=== PATIENT | male | born 1975 | race Caucasian/White ===

== ENCOUNTER 2018-06-29 10:52 | Inpatient (IN) | payer MEDICAID, OTHER ==
--- NOTE | 2018-06-29 11:36 | ED ---
Psych HPI - General Chief Complaint: Psychiatric Symptoms Stated Complaint: mental health Time Seen by Provider: 06/29/18 10:57 Source: patient, RN notes reviewed Mode of arrival: ambulatory - History of Present Illness Initial Comments: 43-year-old male presents emergency Department chief complaint depression, suicidal. He's been having worsening depression worsening suicidal ideation. He states that he's been trying to located gun states that he located 1 with the hospitalist imaging worried to go psyching headache is a felt that he was any kill himself. Patient states he does have a history of alcohol and drug use. Patient states he does have a long history of depression and which she has been admitted the hospital before. Patient states he is currently homeless. He has no physical complaints. - Related Data Home Medications Medication Instructions Recorded Confirmed No Known Home Medications 06/29/18 06/29/18 Allergies Allergy/AdvReac Type Severity Reaction Status Date / Time codeine Allergy Swelling Verified 06/29/18 13:08 morphine Allergy Swelling Verified 06/29/18 13:08 Review of Systems ROS Statement: Those systems with pertinent positive or pertinent negative responses have been documented in the HPI. ROS Other: All systems not noted in ROS Statement are negative. Past Medical History Past Medical History: No Reported History, Syncope History of Any Multi-Drug Resistant Organisms: None Reported Additional Past Surgical History / Comment(s): Amputated Left index. Past Psychological History: Anxiety Smoking Status: Current every day smoker Past Alcohol Use History: None Reported Past Drug Use History: Marijuana General Exam Limitations: no limitations General appearance: alert, in no apparent distress Head exam: Present: atraumatic, normocephalic, normal inspection Eye exam: Present: normal appearance, PERRL, EOMI. Absent: scleral icterus, conjunctival injection, periorbital swelling ENT exam: Present: normal exam, normal oropharynx, mucous membranes moist, TM's normal bilaterally Neck exam: Present: normal inspection, full ROM. Absent: tenderness, meningismus, lymphadenopathy Respiratory exam: Present: normal lung sounds bilaterally. Absent: respiratory distress, wheezes, rales, rhonchi, stridor Cardiovascular Exam: Present: regular rate, normal rhythm, normal heart sounds. Absent: systolic murmur, diastolic murmur, rubs, gallop, clicks Neurological exam: Present: alert, oriented X3 Psychiatric exam: Present: depressed Skin exam: Present: warm, dry, intact, normal color. Absent: rash Course Vital Signs 06/29/18 10:54 Temperature 97.8 F Pulse Rate 52 L Respiratory 20 Rate Blood Pressure 116/69 O2 Sat by Pulse 99 Oximetry Medical Decision Making - Lab Data Lab Results 06/29/18 Range/Units 13:00 Urine Opiates Screen Not Detected (NotDetected) Ur Oxycodone Screen Not Detected (NotDetected) Urine Methadone Screen Not Detected (NotDetected) Ur Propoxyphene Screen Not Detected (NotDetected) Ur Barbiturates Screen Not Detected (NotDetected) U Tricyclic Antidepress Not Detected (NotDetected) Ur Phencyclidine Scrn Not Detected (NotDetected) Ur Amphetamines Screen Detected H (NotDetected) U Methamphetamines Scrn Detected H (NotDetected) U Benzodiazepines Scrn Not Detected (NotDetected) Urine Cocaine Screen Not Detected (NotDetected) U Marijuana (THC) Screen Detected H (NotDetected) Disposition Clinical Impression: Depression, Suicidal ideation Disposition: TRANSFER TO PSYCH HOSP/UNIT Condition: Stable
[2018-06-29 13:31] LABS: Amphetamine Screen,Urine Detected (NotDetected); Barbiturate Screen,Urine Not Detected (NotDetected); Benzodiazepines Screen,Urine Not Detected (NotDetected); Cocaine Screen,Urine Not Detected (NotDetected); Methadone Screen, Urine Not Detected (NotDetected); Opiate Screen,Urine Not Detected (NotDetected); Oxycodone Screen, Urine Not Detected (NotDetected); Phencyclidine Screen,Urine Not Detected (NotDetected); Tricyclic Antidepressant,Urine Not Detected (NotDetected); Urn Cannabinoid Scrn Detected (NotDetected)
[2018-06-29] MEDS ORDERED: LORazepam 1 MG TAB PO PRN (17:06)
[2018-06-29] MEDS ORDERED: ZIPRASIDONE 20 MG VIAL IM PRN (17:06)
[2018-06-29] MEDS ORDERED: MAGNESIUM HYDROXIDE 2,400 MG/10 ML CUP PO PRN (17:06)
[2018-06-29] MEDS ORDERED: MAG HYDROX/AL HYDROX/SIMETH 30 ML CUP PO PRN (17:06)
[2018-06-29] MEDS ORDERED: LORazepam 2 MG/ML INJ IM PRN (17:10)
[2018-06-29] MEDS: NICOTINE 14MG/24HR PATCH TRANSDERM SCH (17:50)
--- NOTE | 2018-06-30 | P.MDCNMH ---
History of Present Illness H&P Date: 06/29/18 Chief Complaint: Severe depression and suicidal ideation Patient is a 43-year-old male with a known history of anxiety, nicotine addiction was admitted to the hospital for depression and suicidal ideation. Patient states he does have a history of alcohol and drug use. Patient states he does have a long history of depression and which she has been admitted the hospital before. Patient states he is currently homeless. He has no physical complaints. Denied any complaints of chest pain or shortness of breath. No fever no chills. Patient continues to smoke daily basis. 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 UDS is positive for methamphetamines and marijuana. Review of Systems Constitutional: Patient denies any fever or chills . No generalized weakness or weight loss. Abdomen: Patient denied nausea vomiting and diarrhea and abdominal pain. Cardiovascular: Patient denies any chest pain or short of breath no palpitations. Respiratory: patient denied any cough is from production. No shortness of breath Neurologic: Patient denied any numbness or tingling headache. Musculoskeletal: Patient denies any complaints of joint swelling or deformity. Skin: Negative Psychiatric: Depression Endocrine: No heat or cold intolerance. No recent weight gain. Genitourinary: No dysuria or hematuria. All other 14 point ROS negative except the above Past Medical History Past Medical History: No Reported History, Syncope History of Any Multi-Drug Resistant Organisms: None Reported Additional Past Surgical History / Comment(s): Amputated Left index. Past Psychological History: Anxiety Smoking Status: Current every day smoker Past Alcohol Use History: None Reported Past Drug Use History: Marijuana Medications and Allergies Home Medications Medication Instructions Recorded Confirmed Type No Known Home Medications 06/29/18 06/29/18 History Allergies Allergy/AdvReac Type Severity Reaction Status Date / Time codeine Allergy Swelling Verified 06/29/18 13:08 morphine Allergy Swelling Verified 06/29/18 13:08 Physical Exam Vitals: Vital Signs Temp Pulse Pulse Resp BP BP Pulse Ox 06/29/18 14:15 97.3 F L 69 18 109/73 06/29/18 14:07 61 16 101/57 96 06/29/18 10:54 97.8 F 52 L 20 116/69 99 Intake and Output 06/29/18 06/29/18 06/29/18 06:59 14:59 22:59 Other: Weight 72.575 kg PHYSICAL EXAMINATION: Patient is lying in the bed comfortably, no acute distress, awake alert and oriented.. HEENT: Normocephalic. Neck is supple. Pupils reactive. Nostrils clear. Oral cavity is moist. Ears reveal no drainage. Neck reveals no JVD, carotid bruits, or thyromegaly. CHEST EXAMINATION: Trachea is central. Symmetrical expansion. Lung rodriguez clear to auscultation and percussion. CARDIAC: Normal S1, S2 with no gallops. No murmurs ABDOMEN: Soft. Bowel sounds normal. No organomegaly. No abdominal bruits. Extremities: reveal no edema. No clubbing or cyanosis Neurologically awake, alert, oriented x3 with well-coordinated movements. No focal deficits noted Skin: No rash or skin lesions. Psychiatric: Coperative. Denied any suicidal ideation at this time. Musculoskeletal: No joint swelling or deformity. Normal range of motion. Cranial Nerve Examination - Cranial Nerves Cranial Nerve I- Olfactory: Intact Cranial Nerve II- Optic: Intact Cranial Nerve III- Oculomotor: Intact Cranial Nerve IV- Trochlear: Intact Cranial Nerve V- Trigeminal: Intact Cranial Nerve - Abducens: Intact Cranial Nerve VII- Facial: Intact Cranial Nerve VIII- Auditory: Intact Cranial Nerve IX- Glossopharyngeal: Intact Cranial Nerve X- Vagus: Intact Cranial Nerve XI- Accessory: Intact Cranial Nerve XII- Hypoglossal: Intact Results Labs: Abnormal Lab Results - Last 24 Hours (Table) 06/29/18 Range/Units 13:00 Ur Amphetamines Screen Detected H (NotDetected) U Methamphetamines Scrn Detected H (NotDetected) U Marijuana (THC) Screen Detected H (NotDetected) Assessment and Plan Assessment: Depression with suicidal ideation. History of depression. Currently not on any medications. Nicotine addiction Marijuana use Plan: Patient will be continued on current psychiatric medications and continue to follow closely. Smoking cessation and marijuana use has been counseled extensively. Further recommendations based on the clinical course. We will follow up CBC CMP and TSH level. Thank you for your consult.
[2018-06-30] MEDS: NICOTINE 14MG/24HR PATCH TRANSDERM SCH (07:58)
[2018-06-30 09:45] LABS: Basophils # (A) 0.1 k/uL (0-0.2); Basophils % (A) 0 %; Eosinophils # (A) 0.2 k/uL (0-0.7); Eosinophils % (A) 2 %; HCT 45.7 % (39.0-53.0); HGB 14.7 gm/dL (13.0-17.5); Lymphocytes % (A) 20 %; MCH 28.7 pg (25.0-35.0); MCHC 32.2 g/dL (31.0-37.0); MCV 89.1 fL (80.0-100.0); Mean Platelet Volume 7.3; Monocytes # (A) 0.5 k/uL (0-1.0); Monocytes % (A) 5 %; Neutrophils # (A) 7.2 k/uL (1.3-7.7); Neutrophils % (A) 71 %; Platelet Count 225 k/uL (150-450); RBC 5.13 m/uL (4.30-5.90); RDW 13.2 % (11.5-15.5); WBC 10.2 k/uL (3.8-10.6)
[2018-06-30 09:56] LABS: ALT 21 U/L (21-72); AST 15 U/L (17-59); Albumin 3.9 g/dL (3.5-5.0); Alkaline Phosphatase 63 U/L (38-126); Anion Gap 6 mmol/L; Bilirubin, Delta 0.3 mg/dL (0.0-0.2); Bilirubin,Unconjugated 0.1 mg/dL (0.0-1.1); Blood Urea Nitrogen 15 mg/dL (9-20); Calcium 9.3 mg/dL (8.4-10.2); Carbon Dioxide 31 mmol/L (22-30); Chloride 105 mmol/L (98-107); Glucose 73 mg/dL (74-99); Sodium 142 mmol/L (137-145); Total Bilirubin 0.4 mg/dL (0.2-1.3); Total Protein 6.6 g/dL (6.3-8.2)
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
[2018-06-30] MEDS: ESCITALOPRAM 10 MG TAB PO SCH (11:09)
[2018-07-01] MEDS: NICOTINE 14MG/24HR PATCH TRANSDERM SCH (07:43)
[2018-07-01] MEDS: ESCITALOPRAM 10 MG TAB PO SCH (07:43)
--- NOTE | 2018-07-01 10:51 | P.PN ---
Progress Note - Text Interval history: The patient is found in his room he follows me to an interview room. He indicates that his mood is mildly better. He states he is considering leaving [place] [facility]. He states that he only seems to be in trouble when he is in this area. He continues to ventilate feelings of frustration regarding his parents. He states that he does not plan to have any further contact with them. He reports having a female friend up [place] who is supportive he could likely reside with her upon discharge. He has no questions or concerns regarding his psychotropic medication. He reports catching up on sleep and he has not been attending groups this morning so far. Mental status exam: The patient is a male appearing his stated age he is mildly disheveled he has not shaved he is dressed in his own clothing. Eye contact is appropriate he is cooperative and easily directed. He reports feeling safe here in the hospital he has no acute plan of harming himself at this time. He is endorsing no homicidal ideation. He is endorsing no auditory or visual hallucinations or any specific delusions. He does frequently change position while seated in his chair. He frequently uses profanity as he speaks but he demonstrates no verbal or physical aggressiveness. He demonstrates no tangential thinking loose associations or flight of ideas. He can be circumstantial at times. Overall there is no observed evidence of psychosis hypomania or migue. Plan: The patient will be continued on the Lexapro 10 mg daily. We will continue to offer suggestions for cognitive restructuring in terms of his thoughts. He does have strong antisocial personality disorder traits. Vital signs reviewed. We will continue to monitor him for safety. We will continue our discussion regarding discharge planning.
[2018-07-02] MEDS: ESCITALOPRAM 10 MG TAB PO SCH (08:10)
[2018-07-02] MEDS: NICOTINE 14MG/24HR PATCH TRANSDERM SCH (08:11)
--- NOTE | 2018-07-02 11:55 | P.PN ---
Progress Note - Text Interval history: The patient is found in his room he follows me to an interview room. He states that his moods improving. He states he's decided he will [place] as he no longer wants to reside in this area. Sleep is been stable he is eating. He has been having phone conversation with his female friend Natalia ace. He has no questions or concerns regarding the Lexapro. Mental status exam: The patient is alert he is cooperative and pleasant he is dressed in his own clothing. Eye contact is appropriate. He has spontaneous speech that is fluent and nonpressured. He is reporting no acute suicidal ideation intent or plan he endorses no homicidal ideation intent or plan. There is no report or evidence of psychosis he does not appear hypomanic or manic. There is no evidence of tangential thinking loose associations or flight of ideas. Insight and judgment improving. He is oriented to person place and date. Plan: The patient will continue on the Lexapro is written. We will consider discharging him in the next 1-2 days. We will continue to encourage full participation in the milieu. Vital signs reviewed.
[2018-07-02] MEDS: ACETAMINOPHEN TAB 325 MG TAB PO PRN (17:24)
[2018-07-03 06:33] VITALS: BP 112/75; PULSE 62; RESP 16; TEMP 98
[2018-07-03] MEDS: ESCITALOPRAM 10 MG TAB PO SCH (08:35)
[2018-07-03] MEDS: NICOTINE 14MG/24HR PATCH TRANSDERM SCH (08:35)
[2018-07-03] MEDS: ACETAMINOPHEN TAB 325 MG TAB PO PRN (08:35)
--- NOTE | 2018-07-03 09:37 | P.DS ---
Providers Date of admission: 06/29/18 13:53 Expected date of discharge: 07/03/18 Attending physician: Yosef Benedict Consults: 06/29/18 17:06 Consult Physician Routine Consulting Provider: Edda Montano Consult Reason/Comments: H & P and medical care Do you want consulting provider notified?: Yes Primary care physician: Louis Blanca - Discharge Diagnosis(es) (1) Major depressive disorder, recurrent severe without psychotic features Current Visit: Yes Status: Acute Priority: High Hospital Course: Brief summary of admission note: This patient is a 43-year-old male who was admitted to the mental health unit with acute suicidal ideation. The patient reported having severe symptoms of depression and suicidal thoughts. His plan was to obtain a gun and shoot himself. He states he was walking to a location where he knew he could get a gun and instead he directed himself to the hospital for help. He reported crying spells poor sleep or appetite and low energy. He felt that the principal precipitant to these symptoms was feelings of rejection from his parents after he disclosed information to them. For full details please refer to my psychiatric evaluation. Summary of hospital course: The patient was admitted to the mental health unit he signed in voluntarily. We reviewed his presenting symptoms and treatment options. We decided to initiate Lexapro 10 mg daily for depressing symptoms. We discussed potential benefits and side effects of the medication as questions were answered. He was seen by internal medicine he met with social work. The patient participated in groups and demonstrated no agitated behavior. He reported a progressive improvement of symptoms while here. During his stay he decided he wouldn't return back up [place] to reside with a friend as he felt he needed to get out of this area. 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 He reports there is nobody local to participate in a family meeting. Mental status exam: The patient is alert he is a thin male he stressors own clothing hygiene grooming are adequate. Eye contact is appropriate speech is fluent spontaneous nonpressured. He denies having any suicidal or homicidal ideation intent or plan. He is reporting no auditory or visual hallucinations or any specific delusions there is no observed evidence of psychosis. He demonstrates no tangential thinking loose associations or flight of ideas, he does not appear hypomanic or manic. Insight and judgment are grossly intact. He demonstrates no verbal or physical aggressiveness. He is oriented to person place and date. Affect appears euthymic and is appropriately expressive. Impressions 1. Major depressive disorder recurrent severe without psychosis, alcohol use disorder, rule out methamphetamine use disorder, rule out marijuana use disorder 2. Antisocial percent disorder traits Plan: The patient will be discharged from mental health unit today. He plans on residing with a friend [facility]. He will continue on Lexapro 10 mg daily. He is instructed to abstain from any use of alcohol marijuana or any other illicit drugs. He does not feel he needs inpatient chemical dependency treatment at this time. He is willing to follow up with the [facility] and social work will arrange his follow-up. At this time there is no imminent safety risk he is appropriate for transition outpatient care. Patient Condition at Discharge: Stable Plan - Discharge Summary Discharge Rx Participant: No New Discharge Prescriptions: New Escitalopram [Lexapro] 10 mg PO DAILY #30 tab Nicotine 14Mg/24Hr Patch [Habitrol] 1 patch TRANSDERM DAILY #10 patch Discharge Medication List Escitalopram [Lexapro] 10 mg PO DAILY #30 tab 07/03/18 [Rx] Nicotine 14Mg/24Hr Patch [Habitrol] 1 patch TRANSDERM DAILY #10 patch 07/03/18 [ Rx] Follow up Appointment(s)/Referral(s): Rianna Myers MD [Primary Care Provider] - 1-2 days
== END 2018-07-03 14:46 | disposition home or self-care (01) | DRG 885 ==
LOC: EC 10:52 → 3MHU 13:53
PROVIDERS: ADMIT Psychiatry & Neurology Psychiatry; ATTEND Psychiatry & Neurology Psychiatry
DX: F33.2 Major depressive disorder, recurrent severe without psychotic features (principal); R45.851 Suicidal ideations; F17.200 Nicotine dependence, unspecified, uncomplicated; F60.2 Antisocial personality disorder; Z59.0 Homelessness; Z88.5 Allergy status to narcotic agent
CPT/HCPCS: 80053; 80306; 82248; 84443; 85025; 99285

== ENCOUNTER 2023-03-02 07:54 | Emergency (ER) | payer OTHER ==
[2023-03-02 07:59] VITALS: BP 119/82; PULSE 79; RESP 20; TEMP 97.5
[2023-03-02] MEDS ORDERED: DIPH,PERTUS(ACELL)TETVAC-LF 0.5 ML VIAL IM ONE (08:32)
--- NOTE | 2023-03-02 08:39 | ED ---
Wound/Laceration HPI - General Chief Complaint: Wound/Laceration Stated Complaint: R Thumb laceration Time Seen by Provider: 03/02/23 07:59 Source: patient, RN notes reviewed Mode of arrival: ambulatory Limitations: no limitations - History of Present Illness Initial Comments: This is a 48-year-old male who presents to the emergency department for a right thumb injury. States that he was helping a friend move yesterday when a piece of metal caused a laceration to his right thumb. Bleeding and pain are both controlled at this time. Unsure when his last tetanus vaccine was. He did rinse this with water immediately afterwards. Denies any fevers, chills, sore throat, cough, dyspnea, chest pain, palpitations, abdominal pain, nausea, vomiting, diarrhea, back pain, or headaches. - Related Data Previous Rx's Medication Instructions Recorded Escitalopram [Lexapro] 10 mg PO DAILY #30 tab 07/03/18 Nicotine 14Mg/24Hr Patch [Habitrol] 1 patch TRANSDERM DAILY #10 patch 07/03/18 Allergies Allergy/AdvReac Type Severity Reaction Status Date / Time codeine Allergy Swelling Verified 07/02/18 01:26 morphine Allergy Swelling Verified 07/02/18 01:26 Review of Systems ROS Statement: Those systems with pertinent positive or pertinent negative responses have been documented in the HPI. ROS Other: All systems not noted in ROS Statement are negative. Past Medical History Past Medical History: No Reported History, Syncope History of Any Multi-Drug Resistant Organisms: None Reported Additional Past Surgical History / Comment(s): Amputated Left index. Past Psychological History: Anxiety Past Alcohol Use History: None Reported Past Drug Use History: Marijuana General Exam Limitations: no limitations General appearance: alert, in no apparent distress Head exam: Present: atraumatic, normocephalic, normal inspection Respiratory exam: Present: normal lung sounds bilaterally. Absent: respiratory distress, wheezes, rales, rhonchi, stridor Cardiovascular Exam: Present: regular rate, normal rhythm, normal heart sounds. Absent: systolic murmur, diastolic murmur, rubs, gallop, clicks Neurological exam: Present: alert, oriented X3, CN II-XII intact Psychiatric exam: Present: normal affect, normal mood Skin exam: Present: other (Superficial skin flap to the dorsal aspect of the right thumb. No active bleeding. No surrounding erythema, tenderness, or drainage.) Course Vital Signs 03/02/23 07:55 Temperature 97.5 F L Pulse Rate 79 Respiratory 20 Rate Blood Pressure 119/82 O2 Sat by Pulse 98 Oximetry Medical Decision Making - Medical Decision Making This is a 48-year-old male who presents to the emergency department for a laceration. Was pt. sent in by a medical professional or institution? @ -No Did you speak to anyone other than the patient for history? @ -No Did you review nursing and triage notes? @ -Yes, and I agree, it is accurate with regards to the patient's symptoms. Were old charts reviewed? @ -No Differential Diagnosis? @ -Not applicable EKG interpreted by me (3pts min.)? @ -Not obtained X-rays interpreted by me (1pt min.)? @ -Not obtained CT interpreted by me (1pt min.)? @ -Not obtained U/S interpreted by me (1pt. min.)? @ -Not obtained What testing was considered but not performed? (CT, X-rays, U/S, labs)? Why? @ -None What meds were considered but not given? Why? @ -None Did you discuss the management of the patient with other professionals? @ -No Did you reconcile home meds? @ -No Was smoking cessation discussed for >3mins.? @ -No Was critical care preformed (if so, how long)? @ -No Were there social determinants of health that impacted care today? How? (Homelessness, low income, unemployed, alcoholism, drug addiction, transportation, low edu. Level, literacy, decrease access to med. care, intermediate, rehab)? @ -No Was there de-escalation of care discussed even if they declined? (Discuss DNR or withdrawal of care, Hospice)? @ -No What co-morbidities impacted this encounter? (DM, HTN, Smoking, COPD, CAD, Cancer, CVA, Hep., AIDS, mental health diagnosis, sleep apnea, morbid obesity)? @ -None Was patient admitted / discharged? @ -Discharged. Physical exam reveals a superficial skin flap that appears to be healing well. Given the duration of time since the injury, discussed that we do not place sutures or glue due to the risk of infection. Additionally, because this is so superficial, we likely would not have done much anyways. Tetanus status was updated. The patient's wound was bandaged and he was discharged home in stable condition. Undiagnosed new problem with uncertain prognosis? @ -None Drug Therapy requiring intensive monitoring for toxicity (Heparin, Nitro, Insulin, Cardizem)? @ -None Were any procedures done? @ -None Diagnosis/symptom? @ -Laceration Acute, or Chronic, or Acute on Chronic? @ -Acute Uncomplicated (without systemic symptoms) or Complicated (systemic symptoms)? @ -Uncomplicated Side effects of treatment? @ -None Exacerbation, Progression, or Severe Exacerbation] @ -Not applicable Poses a threat to life or bodily function? @ -No Return precautions reviewed in depth, the patient is instructed to return to the emergency department with any new, worsening, or concerning symptoms. Patient verbalized understanding. This case was discussed in detail with the attending ED physician, Dr. Knowles. Presentation, findings, and treatment plan discussed in detail as well. Disposition Clinical Impression: Laceration Disposition: HOME SELF-CARE Instructions (If sedation given, give patient instructions): Laceration (ED) Additional Instructions: Return to the emergency department with any new, worsening, or concerning symptoms. Alternate with Tylenol and ibuprofen as needed for pain relief. Keep the area clean. Follow up with your primary care provider in 1-2 days. Is patient prescribed a controlled substance at d/c from ED?: No Referrals: Rianna Myers MD [Primary Care Provider] - 1-2 days
== END 2023-03-02 08:58 | disposition home or self-care (01) ==
LOC: EC 07:54
DX: S61.011A Laceration without foreign body of right thumb without damage to nail, initial encounter (principal); F41.9 Anxiety disorder, unspecified; F12.90 Cannabis use, unspecified, uncomplicated; Z88.5 Allergy status to narcotic agent; Z23 Encounter for immunization; W26.8XXA Contact with other sharp object(s), not elsewhere classified, initial encounter
CPT/HCPCS: 90471; 90715; 99282

== ENCOUNTER 2023-04-06 20:17 | Emergency (ER) | payer OTHER ==
[2023-04-06] MEDS ORDERED: METOCLOPRAMIDE 10 MG TAB PO STA (20:44)
[2023-04-06] MEDS ORDERED: ACETAMINOPHEN TAB 500 MG TAB PO STA (20:44)
[2023-04-06] MEDS ORDERED: diphenhydrAMINE 25 MG CAP PO STA (20:44)
[2023-04-06 20:53] VITALS: TEMP 97.6
--- NOTE | 2023-04-06 20:53 | ED ---
Headache HPI - General Chief Complaint: Headache Stated Complaint: Headache,vomiting Time Seen by Provider: 04/06/23 20:39 Mode of arrival: ambulatory Limitations: no limitations - History of Present Illness Initial Comments: 48-year-old male presenting with chief complaint of headache. Headache began earlier this morning. He states that the pain is evenly distributed throughout the head. He admits to nausea and vomiting. No injury or trauma. No preceding URI like symptoms. No neck pain, fever, chills, dizziness, vision or hearing changes, numbness, tingling, weakness. He is a pack per day smoker. - Related Data Home Medications Medication Instructions Recorded Confirmed No Known Home Medications 04/06/23 04/06/23 Allergies Allergy/AdvReac Type Severity Reaction Status Date / Time codeine Allergy Swelling Verified 04/06/23 21:25 morphine Allergy Swelling Verified 04/06/23 21:25 Review of Systems ROS Statement: Those systems with pertinent positive or pertinent negative responses have been documented in the HPI. ROS Other: All systems not noted in ROS Statement are negative. Past Medical History Past Medical History: No Reported History, Syncope History of Any Multi-Drug Resistant Organisms: None Reported Additional Past Surgical History / Comment(s): Amputated Left index. Past Psychological History: Anxiety Past Alcohol Use History: None Reported Past Drug Use History: Marijuana General Exam Limitations: no limitations General appearance: alert, in no apparent distress Head exam: Present: atraumatic, normocephalic, normal inspection Eye exam: Present: normal appearance, PERRL, EOMI. Absent: scleral icterus, conjunctival injection, periorbital swelling Neck exam: Present: normal inspection, full ROM. Absent: tenderness, meningismus Respiratory exam: Present: normal lung sounds bilaterally. Absent: respiratory distress, wheezes, rales, rhonchi, stridor Cardiovascular Exam: Present: regular rate, normal rhythm, normal heart sounds. Absent: systolic murmur, diastolic murmur, rubs, gallop, clicks Neurological exam: Present: alert, oriented X3, CN II-XII intact Expanded Patient oriented to: Present: person, place, time Speech: Present: fluid speech Cranial nerves: EOM's Intact: Normal Cerebellar function: Heel to [place]: Normal Sensory exam: Upper Extremity Light Touch: Normal, Lower Extremity Light Touch: Normal Motor strength exam: RUE: 5, LUE: 5, RLE: 5, LLE: 5 Eye Response: (4) open spontaneously Motor Response: (6) obeys commands Verbal Response: (5) oriented [place] Total: 15 Psychiatric exam: Present: normal affect, normal mood Skin exam: Present: warm, dry, intact, normal color. Absent: rash Course Vital Signs 04/06/23 04/06/23 04/06/23 20:32 20:44 21:59 Temperature 98.1 F 97.6 F Pulse Rate 77 83 77 Respiratory 18 18 20 Rate Blood Pressure 130/85 126/92 126/76 O2 Sat by Pulse 97 97 98 Oximetry Medical Decision Making - Medical Decision Making Was pt. sent in by a medical professional or institution (, PA, PENCIL SORTER, urgent care, hospital, or jail...) When possible be specific @ -No Did you speak to anyone other than the patient for history (EMS, parent, family, police, friend...)? What history was obtained from this source @ -No Did you review nursing and triage notes (agree or disagree)? Why? @ -I reviewed and agree with nursing and triage notes Were old charts reviewed (outside hosp., previous admission, EMS record, old EKG, old radiological studies, urgent care reports/EKG's, jail records)? Report findings @ -No old charts were reviewed Differential Diagnosis (chest pain, altered mental status, abdominal pain women, abdominal pain men, vaginal bleeding, weakness, fever, dyspnea, syncope, headache, dizziness, GI bleed, back pain, seizure, CVA, palpatations, mental health, musculoskeletal)? @ -MDM Differential Headache: Migraine, tension, cluster, carbon monoxide, central venous thrombosis, pension karma temporal arteritis, acute closure glaucoma, intercranial hemorrhage, mastoiditis, sinusitis, head injury this is not meant to be an all-inclusive list. EKG interpreted by me (3pts min.). @ -As above X-rays interpreted by me (1pt min.). @ -None done CT interpreted by me (1pt min.). @ -None done U/S interpreted by me (1pt. min.). @ -None done What testing was considered but not performed or refused? (CT, X-rays, U/S, labs)? Why? @ -None What meds were considered but not given or refused? Why? @ -None Did you discuss the management of the patient with other professionals (professionals i.e. DrDolores, PA, PENCIL SORTER, lab, RT, psych nurse, social work case manager, train operations manager, teacher, staff nuclear weapons officer, social work case manager)? Give summary @ -No Was smoking cessation discussed for >3mins.? @ -No Was critical care preformed (if so, how long)? @ -No Were there social determinants of health that impacted care today? How? (Homelessness, low income, unemployed, alcoholism, drug addiction, transportation, low edu. Level, literacy, decrease access to med. care, residential, rehab)? @ -No Was there de-escalation of care discussed even if they declined (Discuss DNR or withdrawal of care, Hospice)? DNR status @ -No What co-morbidities impacted this encounter? (DM, HTN, Smoking, COPD, CAD, Cancer, CVA, ARF, Chemo, Hep., AIDS, mental health diagnosis, sleep apnea, morbid obesity)? @ -None Was patient admitted / discharged? Hospital course, mention meds given and route, prescriptions, significant lab abnormalities, going to OR and other pertinent info. @ -48-year-old male presenting with chief complaint of headache that started today. He admits to nausea and vomiting. On physical examination there are no focal neurological deficits, GCS is 15. He is given Tylenol, Reglan, Benadryl. On reassessment he reports resolution of his headache. He is educated on supportive management at home. Follow-up with PCP. Report back to ER with any new or worsening symptoms. Discussed return parameters and answered all questions. Patient conveyed verbal understanding and agreed to the plan. I discussed this case in detail with my attending Dr. Harris Undiagnosed new problem with uncertain prognosis? @ -No Drug Therapy requiring intensive monitoring for toxicity (Heparin, Nitro, Insulin, Cardizem)? @ -No Were any procedures done? @ -No Diagnosis/symptom? @ -Headache Acute, or Chronic, or Acute on Chronic? @ -Acute Uncomplicated (without systemic symptoms) or Complicated (systemic symptoms)? @ -Uncomplicated Side effects of treatment? @ -No Exacerbation, Progression, or Severe Exacerbation? @ -No Poses a threat to life or bodily function? How? (Chest pain, [place], [place], pneumonia, PE, COPD, DKA, ARF, appy, cholecystitis, CVA, Diverticulitis, Homicidal, Suicidal, threat to staff... and all critical care pts) @ -No Disposition Clinical Impression: Headache Disposition: HOME SELF-CARE Condition: Good Instructions (If sedation given, give patient instructions): Acute Headache (ED) Additional Instructions: Follow-up with PCP. Report back to ER with any new or worsening symptoms. Take Motrin and Tylenol as needed for pain control. Is patient prescribed a controlled substance at d/c from ED?: No Referrals: Nona De La Cruz FNPBC [Primary Care Provider] - 1-2 days Time of Disposition: 22:17
[2023-04-06 22:03] VITALS: BP 126/76; PULSE 77; RESP 20
== END 2023-04-06 22:27 | disposition home or self-care (01) ==
LOC: EC 20:17
DX: R51.9 Headache, unspecified (principal); F41.9 Anxiety disorder, unspecified; F17.210 Nicotine dependence, cigarettes, uncomplicated; F12.90 Cannabis use, unspecified, uncomplicated; Z88.5 Allergy status to narcotic agent
CPT/HCPCS: 99284

== ENCOUNTER 2023-07-11 18:54 | Emergency (ER) | payer OTHER ==
--- NOTE | 2023-07-11 21:08 | ED ---
Chest Pain HPI - General Source: RN notes reviewed <NanAriana - Last Filed: 07/11/23 21:07> - General Source: RN notes reviewed, old records reviewed - History of Present Illness MD Complaint: chest pain -: minutes(s) Pain Location: substernal, left chest Severity: mild Severity scale (1-10): 3 Quality: aching Consistency: constant Worsens With: nothing Anginal Symptoms: nausea Other Symptoms: cough <Allen Harris - Last Filed: 07/12/23 00:17> - General Stated Complaint: Chest Pain,Vomiting - History of Present Illness Initial Comments: Patient is a 48 year old male who presents the emergency department for chest pressure headache and vomiting (Ariana Montana) - Related Data Home Medications Medication Instructions Recorded Confirmed No Known Home Medications 04/06/23 04/06/23 Allergies Allergy/AdvReac Type Severity Reaction Status Date / Time codeine Allergy Swelling Verified 07/11/23 21:08 morphine Allergy Swelling Verified 07/11/23 21:08 Review of Systems ROS Other: All systems not noted in ROS Statement are negative. <NanAriana - Last Filed: 07/11/23 21:07> ROS Other: All systems not noted in ROS Statement are negative. <Allen Harris - Last Filed: 07/12/23 00:17> ROS Statement: Those systems with pertinent positive or pertinent negative responses have been documented in the HPI. Past Medical History Past Medical History: No Reported History, Syncope History of Any Multi-Drug Resistant Organisms: None Reported Additional Past Surgical History / Comment(s): Amputated Left index. Past Psychological History: Anxiety Past Alcohol Use History: None Reported Past Drug Use History: Marijuana <Ariana Montana - Last Filed: 07/11/23 21:07> General Exam <Ariana Montana - Last Filed: 07/11/23 21:07> General appearance: alert, in no apparent distress Head exam: Present: atraumatic, normocephalic, normal inspection Eye exam: Present: normal appearance, PERRL, EOMI. Absent: scleral icterus, conjunctival injection, periorbital swelling ENT exam: Present: normal exam, mucous membranes moist Neck exam: Present: normal inspection. Absent: tenderness, meningismus, lymphadenopathy Respiratory exam: Present: normal lung sounds bilaterally. Absent: respiratory distress, wheezes, rales, rhonchi, stridor Cardiovascular Exam: Present: regular rate, normal rhythm, normal heart sounds. Absent: systolic murmur, diastolic murmur, rubs, gallop, clicks GI/Abdominal exam: Present: soft, normal bowel sounds. Absent: distended, tenderness, guarding, rebound, rigid Extremities exam: Present: normal inspection, full ROM, normal capillary refill. Absent: tenderness, pedal edema, joint swelling, calf tenderness Back exam: Present: normal inspection Neurological exam: Present: alert, oriented X3, CN II-XII intact Psychiatric exam: Present: normal affect, normal mood Skin exam: Present: warm, dry, intact, normal color. Absent: rash <Allen Harris - Last Filed: 07/12/23 00:17> - General Exam Comments Initial Comments: Visual Physical Exam Vital signs reviewed General: Well-appearing, nontoxic, no acute distress. Head: Normocephalic, atraumatic Eyes: PERRLA, EOMI ENT: Airway patent Chest: Nonlabored breathing Skin: No visual rash, normal skin tone Neuro: Alert and oriented 3 Musculoskeletal: No gross abnormalities (Nan,Ariana) Course <Allen Harris - Last Filed: 07/12/23 00:17> Vital Signs 07/11/23 07/11/23 21:05 22:31 Temperature 97.9 F 98.1 F Pulse Rate 93 81 Respiratory 20 18 Rate Blood Pressure 148/92 132/87 O2 Sat by Pulse 99 97 Oximetry - Reevaluation(s) Reevaluation #4: 07/12/23 00:16 Was pt. sent in by a medical professional or institution (, PA, DERRICK WORKER, urgent care, hospital, or half-way...) When possible be specific @ -no Did you speak to anyone other than the patient for history (EMS, parent, family, police, friend...)? What history was obtained from this source @ -no Did you review nursing and triage notes (agree or disagree)? Why? @ -agree Are old charts reviewed (outside hosp., previous admission, EMS record, old EKG, old radiological studies, urgent care reports/EKG's, half-way records)? Report findings @ -yes Differential Diagnosis (chest pain, altered mental status, abdominal pain women, abdominal pain men, vaginal bleeding, weakness, fever, dyspnea, syncope, hea dache, dizziness, GI bleed, back pain, seizure, CVA, palpatations, mental health, musculoskeletal)? @ -prior EKG interpreted by me (3pts min.). @ -yes X-rays interpreted by me (1pt min.). @ -yes CT interpreted by me (1pt min.). @ -no U/S interpreted by me (1pt. min.). @ -no What testing was considered but not performed or refused? (CT, X-rays, U/S, labs)? Why? @ -none What meds were considered but not given or refused? Why? @ -none Did you discuss the management of the patient with other professionals (professionals i.e. , PA, DERRICK WORKER, lab, RT, psych nurse, social contact worker, instructional technologist, teacher, chief scientific officer, counseling case manager)? Give summary @ -no Was smoking cessation discussed for >3mins.? @ -no Was critical care preformed (if so, how long)? @ -no Were there social determinants of health that impacted care today? How? (Homelessness, low income, unemployed, alcoholism, drug addiction, transportation, low edu. Level, literacy, decrease access to med. care, long-term, rehab)? @ -none Was there de-escalation of care discussed even if they declined (Discuss DNR or withdrawal of care, Hospice)? DNR status @ -no What co-morbidities impacted this encounter? (DM, HTN, Smoking, COPD, CAD, Canc er, CVA, ARF, Chemo, Hep., AIDS, mental health diagnosis, sleep apnea, morbid obesity)? @ -none Was patient admitted / discharged? Hospital course, mention meds given and route, prescriptions, significant lab abnormalities, going to OR and other pertinent info. @ - Undiagnosed new problem with uncertain prognosis? @ -no Drug Therapy requiring intensive monitoring for toxicity (Heparin, Nitro, Insulin, Cardizem)? @ -no Were any procedures done? @ -no Diagnosis/symptom? @ - Acute, or Chronic, or Acute on Chronic? @ -Acute Uncomplicated (without systemic symptoms) or Complicated (systemic symptoms)? @ -Complicated Side effects of treatment? @ -no Exacerbation, Progression, or Severe Exacerbation? @ -exacerbation Poses a threat to life or bodily function? How? (Chest pain, [place], [place], pneumonia, PE, COPD, DKA, ARF, appy, cholecystitis, CVA, Diverticulitis, Homicidal, Suicidal, threat to staff... and all critical care pts) @ -yes (Allen Harris) Reevaluation #5: 07/12/23 00:16 Differential Chest Pain: Stable Angina, Unstable Angina, STEMI, NSTEMI Aortic Dissection, Pneumothorax, Musculoskeletal, Esophageal Spasm GERD, Cholecystitis, Pancreatitis, Zoster, this is not meant to be an all-inclusive list. (Allen Harris) Chest Pain MDM <Ariana Montana - Last Filed: 07/11/23 21:07> <Allen Harris - Last Filed: 07/12/23 00:17> - MDM I performed the QuickNote portion of this chart - Ariana Montana PA-C (Ariana Montana) 48 male DF for evaluation of significant cough or congestion. Patient does have chest pain as well. Patient can be discharged (Allen Harris) Disposition <Ariana Montana - Last Filed: 07/11/23 21:07> Is patient prescribed a controlled substance at d/c from ED?: No Time of Disposition: 00:00 <Allen Harris - Last Filed: 07/12/23 00:17> Clinical Impression: Atypical chest pain, Chest pain, Panic attack Disposition: HOME SELF-CARE Condition: Fair Instructions (If sedation given, give patient instructions): Chest Pain (ED) Referrals: Dana Forbes MD [Primary Care Provider] - 1-2 days
[2023-07-11 22:05] LABS: Basophils % (A) 0 %; Eosinophils # (A) 0.2 k/uL (0-0.7); Eosinophils % (A) 3 %; HCT 47.8 % (39.0-53.0); HGB 15.4 gm/dL (13.0-17.5); Lymphocytes % (A) 35 %; MCH 28.7 pg (25.0-35.0); MCHC 32.3 g/dL (31.0-37.0); MCV 88.8 fL (80.0-100.0); Mean Platelet Volume 7.6; Monocytes # (A) 0.5 k/uL (0-1.0); Monocytes % (A) 6 %; Neutrophils # (A) 4.7 k/uL (1.3-7.7); Neutrophils % (A) 55 %; Platelet Count 267 k/uL (150-450); RBC 5.38 m/uL (4.30-5.90); RDW 13.2 % (11.5-15.5); WBC 8.6 k/uL (3.8-10.6)
--- NOTE | 2023-07-11 22:07 | XR ---
EXAMINATION TYPE: XR chest 2V DATE OF EXAM: 07/11/2023 9:30 PM CLINICAL INDICATION:Male, 48 years old with history of Chest Pain; [facility] COMPARISON: Chest radiographs from 05/23/2018 TECHNIQUE: XR chest 2V Frontal and lateral views of the chest. FINDINGS: Lungs/Pleura: There is no evidence of pleural effusion, focal consolidation, or pneumothorax. Pulmonary vascularity: Unremarkable. Heart/mediastinum: Cardiomediastinal silhouette is unremarkable. Musculoskeletal: No acute osseous pathology. IMPRESSION: No acute cardiopulmonary disease/process.
[2023-07-11 22:13] LABS: Partial Thromboplastin Time 24.9 sec (22.0-30.0); Prothrombin Time 11.2 sec (10.0-12.5)
[2023-07-11 22:23] LABS: ALT 23 U/L (4-49); AST 24 U/L (17-59); African American GFR (CKD) >90 (>60 ml/min/1.73 sqM); Albumin 3.9 g/dL (3.5-5.0); Alkaline Phosphatase 92 U/L (38-126); Anion Gap 8 mmol/L; Blood Urea Nitrogen 16 mg/dL (9-20); Calcium 8.9 mg/dL (8.4-10.2); Carbon Dioxide 24 mmol/L (22-30); Chloride 106 mmol/L (98-107); Glucose 121 mg/dL (74-99); Lipase 79 U/L (23-300); Magnesium 2.1 mg/dL (1.6-2.3); Non-African American GFR(CKD) >90 (>60 ml/min/1.73 sqM); Potassium 4.1 mmol/L (3.5-5.1); Sodium 138 mmol/L (137-145); Total Bilirubin 0.3 mg/dL (0.2-1.3); Total Protein 6.7 g/dL (6.3-8.2)
[2023-07-11 22:50] VITALS: BP 132/87; PULSE 81; RESP 18; TEMP 98.1
== END 2023-07-11 20:05 | disposition home or self-care (01) ==
LOC: EC 18:54
DX: R07.89 Other chest pain (principal); F41.0 Panic disorder [episodic paroxysmal anxiety]; F12.90 Cannabis use, unspecified, uncomplicated; Z86.59 Personal history of other mental and behavioral disorders; Z88.5 Allergy status to narcotic agent
CPT/HCPCS: 36415; 71046; 80053; 83690; 83735; 84484; 85025; 85610; 85730; 93005; 99285